=== PATIENT | male | born 1980 | race Caucasian/White ===

== ENCOUNTER 2021-01-20 20:59 | Emergency (ER) | payer BC ==
[~2021-01-20] VITALS: Ht 172.7 cm; Wt 95.3 kg
[2021-01-20] MEDS ORDERED: CLEOCIN HCL300 MG PO (21:41)
[2021-01-20] MEDS ORDERED: CEPHALEXIN500 MG PO (21:42)
[2021-01-20] MEDS ORDERED: CEFTRIAXONE 1 GM VIAL IM ONE (21:45)
[2021-01-20] MEDS ORDERED: CEFTRIAXONE 1 GM VIAL ONE (21:48)
== END 2021-01-20 22:05 | disposition home or self-care (01) ==
LOC: FSED 21:26
DX: L03.311 Cellulitis of abdominal wall (principal); E29.1 Testicular hypofunction; I10 Essential (primary) hypertension
CPT/HCPCS: 99282; J0696

== ENCOUNTER 2023-02-05 19:07 | Emergency (ER) | payer BC ==
[~2023-02-05] VITALS: Ht 172.7 cm; Wt 90.7 kg
[~2023-02-05 19:07] MED LIST: CEPHALEXIN500 MG PO; CLEOCIN HCL300 MG PO
[2023-02-05] MEDS ORDERED: FLOMAX0.4 MG PO (20:21)
[2023-02-05 20:24] VITALS: O2SAT 97
== END 2023-02-05 20:50 | disposition home or self-care (01) ==
LOC: FSED 19:37
DX: R30.0 Dysuria (principal); R35.0 Frequency of micturition; I10 Essential (primary) hypertension
CPT/HCPCS: 81003; 99283